=== PATIENT | male | born 1965 | race African-American/Black ===

== ENCOUNTER → 2016-08-01 | Outpatient (CLI) | payer BC ==
[~2016-08-01] MED LIST: CHLORTHALIDONE25 M1 PO; CLONAZEPAM0.5 MG PO; DARVOCET-N 1001 TAB PO; FLEXERIL PO; KEPPRA500 M1 PO; KEPPRA750 MG PO; KLONOPIN1 MG PO; LABETALOL HCL100 MG PO; LISINOPRIL PO; LISINOPRIL20 MG PO; MEDROL PO; POTASSIUM CHLO10 ME1 PO; SIMVASTATIN10 MG PO; TYLOX1 CAP 5/50 DOB; UNKONWN; VICODIN 5/500 T1 TAB PO
--- NOTE | ~2016-08-01 | CR63 ---
[facility] A Service of [facility] RADIOLOGY TEXT RESULTS PATIENT: MG ELIZABETH LOCATION: [facility] : 65 UNIT #: [id number] AGE: [address]: Josh Marquez MD SEX: M ORDER DR: [id number] [facility]. [place], [place] [address] [id number] O MR#: [id number] Acc #: [id number] NAME: MG ELIZABETH : 1965 SEX: M STUDY DATE/TIME: 08/01/2016 11:44 UNIT: [facility] ROOM: STUDY DESCRIPTION: CR Chest 2 View Attending Physician: Josh Marquez M.D. Ordering Physician: Josh Marquez M.D. Primary Care Physician: Woodrow Luna M.D. MEDICAL IMAGING REPORT This report is preliminary unless electronic signature is present EXAM 2 views chest, 08/01/2016 HISTORY Preop diagnostic arthroscopy right knee with possible operative arthroscopy and/or arthrotomy right knee. FINDINGS PA and lateral radiographs of the chest are presented. Comparison 11/05/2015. Mild degenerative changes in the spine. No acute-appearing bony abnormality. Heart normal in size. The thoracic aorta is somewhat tortuous. Mild prominence of right hilar contour corresponding to ascending aorta. This is unchanged from studies dating to 2010 and may be a reflection of ascending aortic tortuosity but ascending aortic ectasia or yoni aneurysmal dilatation is not excluded and could best be further evaluated with cross-sectional imaging such as CT when clinically appropriate for the patient. The lungs are well inflated without evidence of acute pulmonary disease, pleural effusion or pneumothorax. No suspicious nodule. Calcified granuloma at the right apex. Dictated by... Matt Sheehan M.D. THIS IS AN ELECTRONICALLY VERIFIED REPORT Matt Sheehan M.D. at 08/01/2016 6:08 PM Kathia TD: 08/01/2016 16:15 JOB #: [id number] MEDICAL IMAGING REPORT [facility] A Service of [facility] RADIOLOGY TEXT RESULTS PATIENT: MG ELIZABETH LOCATION: [facility] : 65 UNIT #: [id number] AGE: [address]: Josh Marquez MD SEX: M ORDER DR: Page 1 of 1 COPY
[2016-08-01 11:04] LABS: HEMATOCRIT 41.1 % (38.0-50.0); HEMOGLOBIN 13.1 gm/dL (13.0-16.0); MEAN CORPUSCULAR HEMOGLOBIN 24.2 PG (28-34); MEAN CORPUSCULAR HGB CONC 31.8 g/dL (30-36); MEAN PLATELET VOLUME 7.7 FL (6.5-11.5); RED BLOOD COUNT 5.41 X10e (3.90-5.60); RED CELL DISTRIBUTION WIDTH 16.9 % (11.0-15.5); WHITE BLOOD COUNT 6.3 X10e3 (4.0-10.5)
[2016-08-01 11:06] LABS: URINE APPEARANCE CLEAR; URINE BILIRUBIN NEG (NEG); URINE BLOOD NEG (NEG); URINE COLOR YELLOW; URINE GLUCOSE NEG (NEG); URINE KETONE NEG (NEG); URINE LEUKOCYTE ESTERASE NEG (NEG); URINE NITRATE NEG (NEG); URINE PH 5.5 (5-8); URINE PROTEIN NEG (NEG); URINE SPECIFIC GRAVITY 1.026 (1.003-1.035)
[2016-08-01 11:11] LABS: URINE SOURCE CLEAN CATCH
[2016-08-01 11:54] LABS: BUN/CREATININE RATIO 13.84; CALCIUM SERUM 9.2 mg/dL (8.4-10.2); CREATININE SERUM 1.3 mg/dL (0.6-1.4); GLOM FILT RATE Estimated 73.8 mL/min (>60); POTASSIUM 3.9 mmol/L (3.5-5.1)
== END | disposition home or self-care (01) ==
LOC: CAMB 09:00
PROVIDERS: Orthopaedic Surgery
DX: Z01.818 Encounter for other preprocedural examination (principal); M17.11 Unilateral primary osteoarthritis, right knee
CPT/HCPCS: 36415; 71020; 80048; 81003; 85027

== ENCOUNTER → 2016-08-03 | Day surgery (SDC) | payer BC ==
--- NOTE | ~2016-08-03 | OR ---
Unit #: [id number] #: [id number] Patient: MG ELIZABETH [id number] [address] [place], [place] [address] [id number] O MR#: [id number] NAME: MG ELIZABETH ROOM: Date of Procedure: 08/03/2016 Admission Date: 08/03/2016 Surgeon: Josh Marquez M.D. : 1965 Attending Physician: Josh Marquez M.D. Primary Care Physician: Stanley Miranda Sr., M.D. PROCEDURE OPERATIVE NOTE The patient was seen in preop. The right correct leg was verbally confirmed with the patient and then marked for operating room identification. He was cautioned and stressed in regards to his postop care, activities, aspirin, leg lifts, dressing, dry lifts, range of motion, etc. Patient stated he understood. PREOPERATIVE DIAGNOSIS Right knee tricompartmental degenerative arthritis, medial synovial shelf, medial meniscal tear, synovitis medially. POSTOPERATIVE DIAGNOSES 1. Medial meniscal tear. 2. Grade 3-4 degenerative arthritis medial femoral condyle. 3. Grade 2+ to 3 degenerative arthritis lateral tibial plateau. 4. Grade 3+ to 4+ degenerative arthritis patellar trochlear groove. Patient had three loose bodies. Sizes were 10 x 15 x 3 mm, 10 x 14 x 3 mm, and 12 x 26 x 3 mm that were removed in addition to multiple, multiple small loose bodies. OPERATION PERFORMED Right knee: 1. Diagnostic and operative arthroscopy with one excision medial meniscal tear. 2. Debridement arthroplasty medial femoral condyle. 3. Synovectomy medially. 4. Debridement arthroplasty lateral tibial plateau, grade 2+ to 3. 5. Synovectomy superiorly. 6. Debridement arthroplasty of the patellar trochlear groove. 7. Excision medial synovial shelf. 8. Removal of three loose bodies 10 x 15 x 3, 11 x 14 x 3, and 12 x 26 x3. 9. Joint lavage for the multiple, multiple smaller loose bodies. 10. Injection for postop hemostasis, analgesia and inflammation. TOURNIQUET Tourniquet hemostasis 250 mmHg for less than one hour. TECHNIQUE Under satisfactory general anesthesia, the patient's right knee was meticulously prepped and draped per sterile technique. Followup of this with double gloving by the operative team, followed by this with double gloving by the operative team. Following this, standard three portal Unit #: [id number] #: [id number] Patient: MG ELIZABETH entrances were utilized for arthroscopic procedure. The diagnostic arthroscopy of the entire knee joint was then done. Lateral compartment was first inspected. The lateral meniscus was probed and intact and well seen. The patient had a significant area of the tibial plateau laterally with grade 2+ to 3 degenerative changes and wafering of the articular surface. The femoral condyle was soft but grossly intact. Attention was then turned to the anterior cruciate with normal vascular pattern, normal tautness which was within normal limits on probing. Attention was turned medially with particular attention to the posterior horn of the medial meniscus which showed an underneath tear of the posterior horn and a soft, friable meniscus. Excision of this tear with the power shaver was done. The remainder was probed and found to be stable. On completion of the procedure it was well seen. The femoral condyle upon initially entering the medial compartment of the knee had a large mid weight bearing area of grade 3 to grade 4 degenerative changes with undermining class 4 articular surface and extensive debridement arthroplasty of this area with the power shaver and vacuuming was done. Likewise, the tibial plateau arthritis has debridement arthroplasty of that done with the power shaver in a sweeping motion and a vacuuming technique. Prior to starting the shaving, multiple loose bodies were seen. Three sizes, 10 x 15 x 3 and then 10 x 14 x 3 and then 12 x 26 x 3 mm, were found and excised. Following this, the patient then had a synovectomy medial compartment of the knee that corresponds with one of the patient's maximal areas of preoperative clinical tenderness. This was consistent with inflamed, angry, pathological synovium. It was not removed for visualization. Attention was then turned to the superior pouch to the superior lateral stab site. It had a very, very angry synovium throughout the superior pouch. An extensive synovectomy with a bipolar coagulation unit was utilized for this. The medial synovial shelf was thickened and fibrotic and pathologic with cicatrix and excision of that was then done with the power bipolar Bovie for concomitant hemostasis. Attention was then turned to the trochlear groove that was basically down to bare bone almost and with loose margins imminently to break off and become a loose body and the patellar surfaces that kissed in this area were then mechanical debridement arthroplasty of both the patellar surface and the trochlear groove were then done using inferior lateral and inferior medial portal with power shaver as well as a vacuuming. At completion of this, a significant joint lavage was then done to remove the extensive amount of numerous smaller loose bodies from the knee. Used power vacuum to finish this. On completion, the knee was injected with 40 mL of 0.25% Marcaine with Epi and 1 mL of dexamethasone. The patient tolerated this well and sent to recovery room in satisfactory condition. He will be sent written instructions for his discharge. Dictated by... Luisito Hicks/max Unit #: [id number] #: [id number] Patient: MG ELIZABETH TD: 08/03/2016 10:50 JOB #: [id number] PROCEDURE OPERATIVE NOTE Page 1 of 1 X Josh Marquez MD X PROCEDURE OPERATIVE NOTE
== END | disposition home or self-care (01) ==
LOC: CSUR 07:27
DX: S83.241A Other tear of medial meniscus, current injury, right knee, initial encounter (principal); M17.11 Unilateral primary osteoarthritis, right knee; M65.9 Synovitis and tenosynovitis, unspecified; I10 Essential (primary) hypertension; K21.9 Gastro-esophageal reflux disease without esophagitis; Z79.899 Other long term (current) drug therapy; Z98.890 Other specified postprocedural states; X58.XXXA Exposure to other specified factors, initial encounter
CPT/HCPCS: J0690; J1100; J2250; J2405; J2765; J3010